=== PATIENT | female | born 1985 | race Caucasian/White ===

== ENCOUNTER 2018-11-09 13:33 | Emergency (ER) | payer BC ==
[~2018-11-09] VITALS: Ht 165.1 cm; Wt 77.1 kg
--- NOTE | 2018-11-09 13:35 | NUR ---
Patient to ER bed h1 to gown for evaluation. Side rails up. Report given to Janice PEDROZA.
--- NOTE | 2018-11-09 13:36 | NUR ---
ER Dr. Knight at bedside examining patient.
--- NOTE | 2018-11-09 13:38 | NUR ---
PT AAOx4 BIB BLS in neck collar c/o pain to L head s/p hitting head on slide at raging [place]. No other injuries/complaints per pt/noted. Will continue to monitor.
[2018-11-09 13:42] VITALS: BP_SYST 112
[2018-11-09] MEDS: IBUPROFEN 600 MG TABLET PO ONE (14:14)
--- NOTE | 2018-11-09 14:24 | NUR ---
Pt returned from radiology via [facility]
[2018-11-09 15:10] VITALS: BP_SYST 104
--- NOTE | 2018-11-09 15:10 | NUR ---
Patient given written and verbal discharge instructions and verbalizes understanding. ER MD discussed with patient the results and treatment provided. Patient in stable condition. ID arm band removed. Rx of Flexeril and Motrin given. Patient educated on pain management and to follow up with PMD. Pain Scale 0/10. Opportunity for questions provided and answered. Medication side effect fact sheet provided.
== END 2018-11-09 15:10 | disposition home or self-care (01) ==
LOC: SED 13:33
DX: S13.9XXA Sprain of joints and ligaments of unspecified parts of neck, initial encounter (principal); S09.90XA Unspecified injury of head, initial encounter; W22.8XXA Striking against or struck by other objects, initial encounter; Y93.89 Activity, other specified; Y92.89 Other specified places as the place of occurrence of the external cause; Y99.8 Other external cause status
CPT/HCPCS: 70450-TC; 72125-TC; 81025; 99284